=== PATIENT | female | born 1975 ===

== ENCOUNTER 2016-11-04 07:32 | Emergency (ER) | payer MEDICAID ==
[2016-11-04 07:36] VITALS: BMI 26.7
[2016-11-04 07:46] VITALS: BP 149/92; PULSE 87; RESP 18; TEMP 98.1; O2SAT 100
[2016-11-04] MEDS ORDERED: Naproxen 550 mg Tab PO STA (08:02)
[2016-11-04] MEDS ORDERED: Naproxen 550 mg Tab PO ONE (08:25)
--- NOTE | 2016-11-04 08:26 | C.PDOC ---
History Of Present Illness 41 y/o female that presents to the ED for evaluation of left posterior shoulder pain and left upper back for the past week. Patient states that pain is non- radiating and is worse with with movement of left shoulder. Pt currently working as a homemaker. She denies falls/injuries, chest pain, shortness of breath, cough, fever/chills. Time Seen by Provider: 11/04/16 07:34 Chief Complaint (Nursing): Back Pain History Per: Patient History/Exam Limitations: no limitations Onset/Duration Of Symptoms: Days (1 week) Current Symptoms Are (Timing): Still Present Quality Of Discomfort: "Pain" Previous Symptoms: None. denies: Prior Injury Associated Symptoms: None. denies: Incontinence, New Weakness, New Numbness Exacerbating Factor(s): Movement Additional History Per: Patient Past Medical History Reviewed: Historical Data, Nursing Documentation, Vital Signs Vital Signs: Last Vital Signs Temp 98.1 F 11/04/16 07:37 Pulse 87 11/04/16 07:37 Resp 18 11/04/16 07:37 BP 149/92 H 11/04/16 07:37 Pulse Ox 100 11/07/16 08:08 - Medical History PMH: No Chronic Diseases Family History: States: No Known Family Hx - Social History Hx Alcohol Use: No Hx Substance Use: No - Immunization History Hx Tetanus Toxoid Vaccination: Yes Hx Influenza Vaccination: Yes Hx Pneumococcal Vaccination: Yes Review Of Systems Except As Marked, All Systems Reviewed And Found Negative. Constitutional: Negative for: Fever, Chills Cardiovascular: Negative for: Chest Pain, Palpitations Respiratory: Negative for: Cough, Shortness of Breath Gastrointestinal: Negative for: Nausea, Vomiting Genitourinary: Negative for: Incontinence Musculoskeletal: Positive for: Shoulder Pain (left posterior), Back Pain (left upper). Negative for: Neck Pain Skin: Negative for: Rash Neurological: Negative for: Weakness, Numbness Physical Exam - Physical Exam Appears: Well, Non-toxic, Other (In mild discomfort) Skin: Normal Color, Warm, Dry, No Rash (no rash to left posterior shoulder or left upper back) Head: Normacephalic Eye(s): bilateral: Normal Inspection Oral Mucosa: Moist Neck: No Midline Cervical Tenderness, No Paracervical Tenderness, Supple Cardiovascular: Rhythm Regular Respiratory: Normal Breath Sounds, No Accessory Muscle Use, No Rales, No Rhonchi , No Wheezing Back: Normal Inspection, No CVA Tenderness, No Vertebral Tenderness, No Paraspinal Tenderness Extremity: Normal ROM (FROM of left shoulder), Tenderness (mild tenderness to palpation at left upper/posterior scapular region ), Capillary Refill (< 2 sec all digits ), No Deformity, No Swelling Extremity: Bilateral: Normal Color And Temperature, Normal ROM Pulses: Left Radial: Normal, Right Radial: Normal Neurological/Psych: Oriented x3, Normal Motor, Normal Sensation Gait: Steady ED Course And Treatment O2 Sat by Pulse Oximetry: 100 (on RA) Pulse Ox Interpretation: Normal - Other Rad Left shoulder x-ray X-Ray: Viewed By Me, Read By Radiologist Interpretation: Findings: No evidence for acute displaced fracture or dislocation. Glenohumeral and acromioclavicular joint spaces appear preserved. Mild productive change along the lateral cortex of the mid to inferior scapula. Clinical correlation. Impression: No evidence for acute displaced fracture or dislocation. Glenohumeral and acromioclavicular joint spaces appear preserved. Mild productive change along the lateral cortex of the mid to inferior scapula. Clinical correlation. If pain persists, consider MRI. Progress Note: Left shoulder x-ray ordered and reviewed. Patient given PO Naproxen and Flexeril. Reevaluation Time: 08:45 Reassessment Condition: Improved (Patient reassessed, is resting comfortably, pain has improved. Xray (-) for fractures/dislocations. Patient given Rxs for pain medications, and was instructed to follow up with orthopedics within 1 week. She understands she should return to ED if symptoms worsen.) Disposition Counseled Patient/Family Regarding: Studies Performed, Diagnosis, Need For Followup, Rx Given - Disposition Referrals: Denice James MD [Staff Provider] - [facility] [Outside] [facility] [Outside] Disposition: HOME/ ROUTINE Disposition Time: 08:45 Condition: STABLE Prescriptions: Cyclobenzaprine [Cyclobenzaprine HCl] 10 mg PO BID PRN #15 tab PRN Reason: Muscle Spasm Naproxen [Naprosyn Tab] 375 mg PO BID PRN #20 tab PRN Reason: pain Instructions: Shoulder Pain (ED) Print Language: BELIZEAN - POA Present On Arrival: None - Clinical Impression Clinical Impression: Pain of left scapula, Sprain of shoulder, left - Scribe Statement The provider has reviewed the documentation as recorded by the Francineibe Eyal Crocker All medical record entries made by the David were at my direction and personally dictated by me. I have reviewed the chart and agree that the record accurately reflects my personal performance of the history, physical exam, medical decision making, and the department course for this patient. I have also personally directed, reviewed, and agree with the discharge instructions and disposition.
--- NOTE | 2016-11-04 13:45 | RAD ---
Left shoulder three views History: Shoulder pain. Comparison: None available. Findings: No evidence for acute displaced fracture or dislocation. Glenohumeral and acromioclavicular joint spaces appear preserved. Mild productive change along the lateral cortex of the mid to inferior scapula. Clinical correlation. Impression: No evidence for acute displaced fracture or dislocation. Glenohumeral and acromioclavicular joint spaces appear preserved. Mild productive change along the lateral cortex of the mid to inferior scapula. Clinical correlation. If pain persists, consider MRI.
== END 2016-11-04 08:48 | disposition home or self-care (01) ==
LOC: C.ER 07:32
DX: S43.402A Unspecified sprain of left shoulder joint, initial encounter (principal); X58.XXXA Exposure to other specified factors, initial encounter; M54.89 Other dorsalgia

== ENCOUNTER 2017-08-30 21:25 | Emergency (ER) | payer MEDICAID ==
[2017-08-30 21:25] VITALS: BMI 26.7
[2017-08-30 21:57] VITALS: BP 116/79; PULSE 89; RESP 20; TEMP 98.4; O2SAT 98
--- NOTE | 2017-08-30 22:11 | C.PDOC ---
History Of Present Illness 42 year old female complains of migraine headcache since this afternoon. She reports headache started on left and is now generalized with associated photophobia and nausea. She took Tylenol #3 earlier with little relief. She also reports neck and upper back pain, she says has history of herniated disks. Patient states she had EMG yesterday and pain worsened after. This is not worst headache of her life. She denies any fever, dizziness, vision changes, vomiting , numbness or weakness. Time Seen by Provider: 08/30/17 22:01 Chief Complaint (Nursing): Headache History Per: Patient History/Exam Limitations: no limitations Onset/Duration Of Symptoms: Hrs Current Symptoms Are (Timing): Still Present Associated Symptoms: Photophobia, Nausea. denies: Blurred Vision, Vomiting, Extremity Weakness, Other (dizziness, numbness, fever) Recent travel outside of the [place]: No Past Medical History Reviewed: Historical Data, Nursing Documentation, Vital Signs Vital Signs: Last Vital Signs Temp 98.4 F 08/30/17 21:50 Pulse 89 08/30/17 21:50 Resp 20 08/30/17 21:50 BP 116/79 08/30/17 21:50 Pulse Ox 98 08/30/17 22:20 - Medical History PMH: Migraine Family History: States: Unknown Family Hx - Social History Hx Alcohol Use: No Hx Substance Use: No - Immunization History Hx Tetanus Toxoid Vaccination: No Hx Influenza Vaccination: No Hx Pneumococcal Vaccination: Yes Review Of Systems Constitutional: Negative for: Fever, Chills Eyes: Negative for: Vision Change Gastrointestinal: Positive for: Nausea. Negative for: Vomiting Neurological: Positive for: Headache, Other (photophobia). Negative for: Weakness, Numbness, Dizziness Physical Exam - Physical Exam Appears: Non-toxic Skin: Normal Color, Warm, Dry Head: Atraumatic, Normacephalic Eye(s): bilateral: Normal Inspection, PERRL, EOMI Ear(s): Bilateral: Normal Nose: Normal Oral Mucosa: Moist Neck: Normal, Supple Chest: Symmetrical, No Tenderness Cardiovascular: Rhythm Regular Respiratory: Normal Breath Sounds, No Rales, No Rhonchi, No Wheezing Gastrointestinal/Abdominal: Soft, No Tenderness Neurological/Psych: Oriented x3, Normal Speech, Normal Cognition, Normal Cranial Nerves, Normal Motor, Normal Sensation, Other (no focal deficits) ED Course And Treatment O2 Sat by Pulse Oximetry: 98 (room air) Pulse Ox Interpretation: Normal Medical Decision Making Medical Decision Making: Impression: migraine headache Plan: * POC preg neg * Toradol * Reglan Reassess: Patient is resting comfortably, is tolerating PO, and no longer has headache, neurologic deficit, photophobia, rash, fever, or nuchal rigidity. Patient was instructed to follow up with PMD in 1-2 days. Disposition Counseled Patient/Family Regarding: Diagnosis, Need For Followup, Rx Given - Disposition Referrals: Candido Miller MD [Medical Doctor] - Disposition: HOME/ ROUTINE Disposition Time: 23:00 Condition: IMPROVED Additional Instructions: Vaya a encinas mdico o la clnica en 2-5 moreno sin falta, para mas evaluacin. [place] los medicamentos brandi indicado. Volver a la jen de emergencia en cualquier momento si los sntomas persisten o empeoran. 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 - Scribe Statement The provider has reviewed the documentation as recorded by the Scribe Hal Kirby All medical record entries made by the Scribe were at my direction and personally dictated by me. I have reviewed the chart and agree that the record accurately reflects my personal performance of the history, physical exam, medical decision making, and the department course for this patient. I have also personally directed, reviewed, and agree with the discharge instructions and disposition.
== END 2017-08-30 23:20 | disposition home or self-care (01) ==
LOC: C.ER 21:25
DX: G43.909 Migraine, unspecified, not intractable, without status migrainosus (principal)
CPT/HCPCS: 96372; 99284; J1885